=== PATIENT | male | born 1985 | race Caucasian/White ===

== ENCOUNTER 2023-02-24 17:08 | Emergency (ER) | payer MEDICAID ==
[~2023-02-24] VITALS: Ht 175 cm; Wt 108.0 kg
[2023-02-24 17:30] LABS: BILIRUBIN,URINE NEGATIVE (NEGATIVE); CLARITY,URINE CLEAR; COLOR,URINE YELLOW; GLUCOSE, URINE (UA) NEGATIVE (NEGATIVE); KETONES,URINE NEGATIVE (NEGATIVE); LEUKOCYTE ESTERASE ,URINE NEGATIVE (NEGATIVE); NITRITE,URINE NEGATIVE (NEGATIVE); PROTEIN,URINE NEGATIVE (NEGATIVE)
--- NOTE | 2023-02-24 17:34 | ED Abdominal Pain ---
General Chief Complaint: Abdominal/GI Problems Stated Complaint: ABD PAIN Nursing Triage Note: ABD PAIN WITH NAUSEA STARTING ON WEDNESDAY. Source of Information: Patient Exam Limitations: No Limitations History of Present Illness Date Seen by Provider: Feb 24, 2023 Time Seen by Provider: 17:31 Initial Comments Patient is a 37-year-old male who presents ED with left-sided abdominal pain. Pain started on Wednesday. He states he was playing with his son and lifted him up into the air and put him down and felt a sharp pain to the left side abdomen. Pain is sharp. This pain is worse with any type of movement specially rotational. Reports nausea without vomiting or diarrhea. Denies any urinary symptoms. History of bowel resection secondary to a perforation few years ago. Denies taking thing for pain. He states he had to miss work secondary to the pain. Patient denies chest pain, cough, shortness of breath, headache, dizziness Allergies and Home Medications Allergies Uncoded Allergies: EYE DROP WITH STEROID (Allergy, Severe, EYE WENT BLANK FOR A BIT, 02/24/23) Patient Home Medication List Home Medication List Reviewed: Yes Review of Systems Review of Systems Constitutional: No chills, No diaphoresis EENTM: No Blurred Vision, No Double Vision, No Eye Pain Respiratory: Denies Cough, Denies Orthopnea Cardiovascular: Denies Chest Pain Gastrointestinal: Abdominal Pain; Denies Diarrhea; Nausea; Denies Vomiting Genitourinary: Denies Burning, Denies Discharge, Denies Frequency, Denies Flank Pain Musculoskeletal: No back pain Skin: No change in color, No change in hair/nails All Other Systems Reviewed Negative Unless Noted: Yes Past Tbxosxs-Ymjebu-Vbktfa Hx Patient Social History Tobacco Use?: No Substance use?: No Alcohol Use?: No Physical Exam Vital Signs Vital Signs - First Documented 02/24/23 17:14 Temp 37.3 Pulse 89 Resp 16 B/P (MAP) 135/95 (108) Pulse Ox 95 O2 Delivery Room Air Capillary Refill : Less Than 3 Seconds Height/Weight/BMI Height: '" Weight: lbs. oz. kg; 35.00 BMI Method: General Appearance: WD/WN, no apparent distress HEENT: PERRL/EOMI, normal ENT inspection, TMs normal, pharynx normal Neck: non-tender, full range of motion, supple Respiratory: chest non-tender, lungs clear, normal breath sounds, no respiratory distress, no accessory muscle use Cardiovascular: regular rate, rhythm, no edema, no gallop, no JVD Gastrointestinal: normal bowel sounds, soft, no organomegaly, no pulsatile mass, other (Left side abdominal tenderness. Normal bowel sounds throughout.) Extremities: normal range of motion, non-tender, normal inspection, no pedal e jose elias Back: normal inspection, no CVA tenderness, no vertebral tenderness Neurologic/Psychiatric: strategy lead II-XII nml as tested, no motor/sensory deficits, alert, normal mood/affect, oriented x 3 Skin: normal color, warm/dry Progress/Results/Core Measures Results/Orders Lab Results Laboratory Tests Test 02/24/23 17:20 Range/Units Urine Color YELLOW Urine Clarity CLEAR Urine pH 6.0 5-9 Urine Specific [place] >=1.030 1.016-1.022 Urine Protein NEGATIVE NEGATIVE Urine Glucose (UA) NEGATIVE NEGATIVE Urine Ketones NEGATIVE NEGATIVE Urine Nitrite NEGATIVE NEGATIVE Urine Bilirubin NEGATIVE NEGATIVE Urine Urobilinogen 1.0 < = 1.0 MG/DL Urine Leukocyte Esterase NEGATIVE NEGATIVE Urine RBC (Auto) NEGATIVE NEGATIVE Urine RBC NONE /HPF Urine WBC NONE /HPF Urine Squamous Epithelial Cells 0-2 /HPF Urine Crystals NONE /LPF Urine Bacteria NEGATIVE /HPF Urine Casts NONE /LPF Urine Mucus NEGATIVE /LPF Urine Culture Indicated NO My Orders Orders - RICHARD CUI Ua Culture If Indicated (02/24/23 17:15) Abdomen/Kub 1view (02/24/23 17:28) Ibuprofen Tablet (Motrin Tablet) (02/24/23 18:15) Vital Signs/I&O 02/24/23 17:14 Temp 37.3 Pulse 89 Resp 16 B/P (MAP) 135/95 (108) Pulse Ox 95 O2 Delivery Room Air Blood Pressure Mean: 108 Departure Communication (PCP) Reviewed previous ER visits, H&P, lab testing. Left-sided abdominal pain after lifting his son up. Patient states when he lifted him up twist and turn and put him down and felt a sharp pain in the left sided abdomen. This pain seems to be worse with any movement. Nausea without vomiting or diarrhea. Denies taking thing for pain. Left side abdominal tenderness. Normal bowel sounds throughout. Due to his history of bowel resection abdominal x-ray was ordered to rule out a free air or obstruction. Abdominal x-ray was negative. This appears to be more muscular wall pain. Recommend anti-inflammatories. Receive ibuprofen. Ice and heat. Patient does not appear in distress. Patient was requesting a work note. Recommend follow-up your PCP in 2 days. Anti- inflammatories for pain. If any worsening pain fever chills body aches vomiting or diarrhea to return back to ED for further evaluation. Does not appear to be surgical abdomen Impression Primary Impression: Abdominal pain Disposition: HOME, SELF-CARE Condition: Stable Departure-Patient Inst. Decision time for Depature: 18:05 Referrals: [facility] [place] ([place]P) Primary Care Physician Patient Instructions: Abdominal Pain, Adult ED Add. Discharge Instructions: Recommend ice, anti-inflammatories such as naproxen or ibuprofen for pain. Follow-up with PCP in 2 to 3 days for reevaluation. If any worsening symptoms return back to ED. All discharge instructions reviewed with patient and/or family. Voiced understanding. Work/School Note: Work Release Form Date Seen in the Emergency Department: Feb 24, 2023 Return to Work: Feb 26, 2023 RICHARD CUI Feb 24, 2023 17:34
[2023-02-24 17:51] LABS: BACTERIA,URINE NEGATIVE /HPF; SQUAMOUS EPITHELIAL CELL,UR 0-2 /HPF
--- NOTE | 2023-02-24 17:55 | Diagnostic Imaging Report ---
EXAM: ABDOMEN/KUB 1VIEW INDICATION: Abdominal pain. Nausea. COMPARISON: None. FINDINGS: Nonspecific bowel gas pattern. Suture line in the right mid abdomen. Lung bases are not included on the exam. No large stool burden. IMPRESSION: No acute radiographic findings in the abdomen. Dictated by: Dictated on workstation # [id number]
[2023-02-24 18:14] VITALS: BP 135/95
[2023-02-24] MEDS ORDERED: IBUPROFEN 600 MG (MOTRIN) TAB PO ONE (18:15)
== END 2023-02-24 18:11 | disposition home or self-care (01) ==
LOC: EDUNIT# 17:08 → ER 17:09
DX: R10.9 Unspecified abdominal pain (principal); R11.0 Nausea
CPT/HCPCS: 74018; 81000

== ENCOUNTER 2023-03-19 06:30 | Emergency (ER) | payer MEDICAID ==
[~2023-03-19] VITALS: Ht 175.3 cm; Wt 108.0 kg
[2023-03-19] MEDS ORDERED: NS IV 1000 ML 1,000 ML IV STA (06:41)
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
[2023-03-19] MEDS ORDERED: fentaNYL INJ 100 MCG/2 ML AMP IVP ONE (06:45)
[2023-03-19] MEDS ORDERED: TETANUS,DIPTH,PERTUSS P/F (BOOSTRIX) 0.5 ML VIAL IM ONE (06:45)
[2023-03-19] MEDS ORDERED: ONDANSETRON 4 MG/2 ML (SDV) Z0FRAN IVP ONE (06:45)
[2023-03-19 07:10] LABS: ALBUMIN 4.1 GM/DL (3.2-4.5); POTASSIUM 3.9 MMOL/L (3.6-5.0)
[2023-03-19 07:11] LABS: CALCIUM 9.4 MG/DL (8.5-10.1)
[2023-03-19 07:12] LABS: TOTAL PROTEIN 6.7 GM/DL (6.4-8.2)
[2023-03-19 07:13] LABS: BASOPHILS # (AUTO) 0.1 10^3/uL (0.0-0.1); BASOPHILS % (AUTO) 1 % (0-10); EOSINOPHILS # (AUTO) 0.2 10^3/uL (0.0-0.3); EOSINOPHILS % (AUTO) 3 % (0-10); HEMATOCRIT 42 % (40-54); HEMOGLOBIN 14.3 g/dL (13.3-17.7); LYMPHOCYTES # (AUTO) 2.7 10^3/uL (1.0-4.0); LYMPHOCYTES % (AUTO) 30 % (12-44); MEAN CORPUSCULAR HEMOGLOBIN 30 pg (25-34); MEAN CORPUSCULAR HGB CONC 34 g/dL (32-36); MEAN CORPUSCULAR VOLUME 89 fL (80-99); MEAN PLATELET VOLUME 11.2 fL (9.0-12.2); MONOCYTES # (AUTO) 0.6 10^3/uL (0.0-1.0); MONOCYTES % (AUTO) 6 % (0-12); NEUTROPHILS # (AUTO) 5.2 10^3/uL (1.8-7.8); NEUTROPHILS % (AUTO) 59 % (42-75); PLATELET COUNT 266 10^3/uL (130-400); WHITE BLOOD COUNT 8.8 10^3/uL (4.3-11.0)
[2023-03-19 07:14] LABS: BILIRUBIN,TOTAL 0.3 MG/DL (0.1-1.0)
[2023-03-19] MEDS ORDERED: NS 100 ML (IVPB) BAG IV ONE (07:15)
[2023-03-19] MEDS ORDERED: HOLD METFORMIN - RECEIVED CONTRAST 20 ML VIAL IV SCH (07:15)
[2023-03-19] MEDS ORDERED: CATHETER FLUSH 10 ML SYR IV PRN (07:15)
[2023-03-19] MEDS ORDERED: IOHEXOL 350 MG/ML 100 ML (OMNIPAQUE 350) VIAL IV ONE (07:15)
[2023-03-19 07:16] LABS: CREATININE SERUM 1.03 MG/DL (0.60-1.30)
[2023-03-19 07:28] LABS: BACTERIA,URINE NEGATIVE /HPF; BILIRUBIN,URINE NEGATIVE (NEGATIVE); CLARITY,URINE CLEAR; COLOR,URINE YELLOW; GLUCOSE, URINE (UA) NEGATIVE (NEGATIVE); KETONES,URINE NEGATIVE (NEGATIVE); LEUKOCYTE ESTERASE ,URINE NEGATIVE (NEGATIVE); NITRITE,URINE NEGATIVE (NEGATIVE); PROTEIN,URINE NEGATIVE (NEGATIVE); SQUAMOUS EPITHELIAL CELL,UR RARE /HPF; WBC,URINE RARE /HPF
[2023-03-19 08:10] VITALS: BP 106/101
--- NOTE | 2023-03-19 08:10 | Diagnostic Imaging Report ---
PROCEDURE: CT abdomen and pelvis with contrast. TECHNIQUE: Multiple contiguous axial images were obtained through the abdomen and pelvis after administration of intravenous contrast. Auto Exposure Controls were utilized during the CT exam to meet ALARA standards for radiation dose reduction. All CT scans use one or more of the following dose optimizing techniques: automated exposure control, MA and/or KvP adjustment based on patient size and exam type or iterative reconstruction. INDICATION: Left flank injury Lung bases are clear. There is fatty infiltration of liver. Gallbladder is normal. Portal vein is patent. Common duct is not dilated. Pancreas appears normal. Spleen is not enlarged. Adrenals appear normal. Kidneys appear normal. There is an incisional ventral hernia containing fat to the left of midline, 3 separate locations above the umbilicus. There is no herniation of bowel. Small bowel is not dilated. There is no evidence for appendicitis. Colon is unremarkable. Urinary bladder is normal. There is no intraperitoneal free air or free fluid. IMPRESSION: Several small fatty abdominal hernias.. These appear to be related to a surgical incision. There are no acute abnormalities seen. Dictated by: Dictated on workstation # [id number]
== END 2023-03-19 08:10 | disposition home or self-care (01) ==
LOC: EDUNIT# 06:30 → ER 06:31
DX: S20.222A Contusion of left back wall of thorax, initial encounter (principal); Z23 Encounter for immunization; V03.90XA Pedestrian on foot injured in collision with car, pick-up truck or van, unspecified whether traffic or nontraffic accident, initial encounter; Y92.410 Unspecified street and highway as the place of occurrence of the external cause
CPT/HCPCS: 36415; 74177; 80053; 81000; 85025; 90715